=== PATIENT | male | born 1965 | race Caucasian/White ===

== ENCOUNTER 2020-08-27 14:41 | Emergency (ER) | payer MEDICAID ==
[~2020-08-27] VITALS: Ht 167.6 cm; Wt 99.8 kg
--- NOTE | 2020-08-27 14:50 | NUR ---
BIB SELF C/O ABSCESS ON THE CHEST. RATES PAIN 5/10. RESPIRATION REGULAR AND UNLABORED. DENIES SOB. WILL CONTINUE TO MONITOR THE PATIENT.
[2020-08-27] MEDS ORDERED: CEPH500C2 PO (15:27)
[2020-08-27 15:36] VITALS: BP 136/84
--- NOTE | 2020-08-27 15:36 | NUR ---
Patient discharged to home in stable condition. Written and verbal after care instructions given. Patient verbalizes understanding of instruction. The patient left ER in stable condition.
== END 2020-08-27 15:38 | disposition home or self-care (01) ==
LOC: ER 14:45
DX: J86.9 Pyothorax without fistula (principal); E66.9 Obesity, unspecified; Z68.35 Body mass index [BMI] 35.0-35.9, adult; Z79.899 Other long term (current) drug therapy